=== PATIENT | female | born 1980 | race Hispanic/Latino ===

== ENCOUNTER 2016-11-04 09:02 | Emergency (ER) | payer MEDICAID ==
[2016-11-04 09:11] VITALS: BP 130/78; PULSE 71; RESP 20; TEMP 97.9; O2SAT 99
--- NOTE | 2016-11-04 09:40 | C.PDOC ---
History Of Present Illness 36 yo female w/PMHx of chronic neck and lower back pain, come in for evaluation of Right sided neck pain exacerbation for past few days. Pain is localized over Right side over neck, " tightness" extend down to Right upper back, worse with movement. Pt admits, similar sx in past and c/w chronic neck pain. Pt sts, takes currently Naproxen, Flexeril without improvement. Otherwise, pt denies known direct trauma or injury, fever, chills, headache, dizziness, CP, SOB, dyspnea, palpitation, denies weakness, sensory or vascular deficits to B/L Es. Ambulate to ED for evaluation, not in any apparent distress. Time Seen by Provider: 11/04/16 09:21 Chief Complaint (Nursing): Back Pain History Per: Patient History/Exam Limitations: no limitations Onset/Duration Of Symptoms: Days Current Symptoms Are (Timing): Still Present Quality Of Discomfort: "Pain" Severity: Moderate Previous Symptoms: None Associated Symptoms: None Recent travel outside of the [place]: No Past Medical History Reviewed: Historical Data, Nursing Documentation, Vital Signs Vital Signs: Last Vital Signs Temp 97.9 F 11/04/16 09:07 Pulse 71 11/04/16 09:07 Resp 20 11/04/16 09:07 BP 130/78 11/04/16 09:07 Pulse Ox 99 11/04/16 10:13 - Medical History PMH: Migraine - [facility] Procedures MONITORING NOS (02/06/14) INJECT/INFUSE NEC (01/11/14) MANUAL ASSIST DELIV NEC (03/12/14) Family History: States: Diabetes, Hypertension - Social History Hx Tobacco Use: No Hx Alcohol Use: No (occasional EtOH) Hx Substance Use: No - Immunization History Hx Tetanus Toxoid Vaccination: No Hx Influenza Vaccination: No Hx Pneumococcal Vaccination: No Review Of Systems Except As Marked, All Systems Reviewed And Found Negative. Constitutional: Negative for: Fever, Chills Cardiovascular: Negative for: Chest Pain, Palpitations Respiratory: Negative for: Shortness of Breath Musculoskeletal: Positive for: Neck Pain, Back Pain Neurological: Negative for: Weakness, Numbness, Headache, Dizziness Physical Exam - Physical Exam Appears: Well, Non-toxic, No Acute Distress Skin: Normal Color, Warm, No Rash Head: Atraumatic, Normacephalic Eye(s): bilateral: Normal Inspection Nose: Normal, No Discharge Oral Mucosa: Moist Throat: Normal Neck: Decreased ROM (to ipsilateral side ( Right)), Trachea Midline, No Midline Cervical Tenderness, Paracervical Tenderness (diffuse Right sided paracervical tenderness extend down to Right upper back with moderate muscle spasm. No midine tenderness.), No Step Off Deformity, Supple Chest: Symmetrical Cardiovascular: Rhythm Regular Respiratory: Normal Breath Sounds, No Stridor, No Wheezing Extremity: Normal ROM, No Tenderness, No Pedal Edema, No Deformity, No Swelling Extremity: Bilateral: Atraumatic Neurological/Psych: Oriented x3, Normal Speech, Normal Motor, Normal Sensation, Normal Reflexes ED Course And Treatment O2 Sat by Pulse Oximetry: 99 (on room air) Pulse Ox Interpretation: Normal Progress Note: On re-eavluation, pt is feeling better after the medication. This appears to be a muscle spasm. No neurological findings noted. She is now able to move her head at full range of motion. Pt advised and ref. to F/u with PMD, PM and PT in 2-3 days for re-evaluation and further tx. Pt understand and agrees with discharges. Disposition Counseled Patient/Family Regarding: Diagnosis, Need For Followup, Rx Given - Disposition Referrals: [facility] [Provider Group] Disposition: HOME/ ROUTINE Disposition Time: 09:40 Condition: STABLE Additional Instructions: Light duty to neck area Consider to change pillow Take medication as need for pain Follow up with PMD, Pain Management and PT in 2-3 days for re-evaluation. Return to ED if any worsening or new changes. Prescriptions: Methocarbamol [Robaxin] 500 mg PO TID #14 tab Ketorolac Tromethamine [Toradol] 10 mg PO BID #10 tab diaZEpam [Valium] 5 mg PO HS #5 tab Instructions: Cervical Sprain (ED), Cervical Radiculopathy (ED) - Clinical Impression Clinical Impression: Cervical radiculitis - PA / GEOPHYSICAL LABORATORY CHIEF / Resident Statement MD/DO has reviewed & agrees with the documentation as recorded.
== END 2016-11-04 09:58 | disposition home or self-care (01) ==
LOC: C.ER 09:02
DX: M54.12 Radiculopathy, cervical region (principal)
CPT/HCPCS: 96372; 99283; J1885

== ENCOUNTER 2017-05-23 16:45 | Emergency (ER) | payer MEDICAID ==
[2017-05-23 17:11] VITALS: TEMP 98
[2017-05-23 18:39] LABS: BASO # 0.1 K/uL (0.0-0.2); BASO % 0.6 % (0.0-2.0); EOS # 0.3 K/uL (0.0-0.7); EOS % 2.4 % (0.0-4.0); HEMATOCRIT 38.1 % (34.0-47.0); LYMPH # 3.2 K/uL (1.0-4.3); MEAN CELL VOLUME 82.8 fL (81.0-99.0); MEAN CORPUSCULAR HGB CONC 33.8 g/dL (33.0-37.0); MEAN PLATELET VOLUME 7.2 fL (7.2-11.7); MONO # 0.5 K/uL (0.0-0.8); MONO % 4.3 % (0.0-10.0); RED CELL DISTRIBUTION WIDTH 13.7 % (11.5-14.5); WHITE BLOOD COUNT 10.8 K/uL (4.8-10.8)
[2017-05-23 18:49] LABS: CHLORIDE 99 mmol/L (98-107); POTASSIUM 3.8 mmol/L (3.6-5.2); SODIUM 135 mmol/L (132-148)
[2017-05-23 18:51] LABS: ALB/GLOB RATIO 1.3 (1.0-2.1); ALKALINE PHOSPHATASE 50 U/L (38-126); AST/SGOT 19 U/L (14-36); BILIRUBIN,TOTAL 0.5 mg/dL (0.2-1.3); CARBON DIOXIDE 25 mmol/L (22-30); GFR AFRICAN-AMERICAN > 60; TOTAL PROTEIN 8.3 g/dL (6.3-8.3)
[2017-05-23 18:52] LABS: ALT/SGPT 29 U/L (9-52); BLOOD UREA NITROGEN 14 mg/dL (7-17); GLUCOSE,RANDOM 84 mg/dL (65-105)
--- NOTE | 2017-05-23 18:59 | C.PDOC ---
History Of Present Illness 36 year old female presents tot ED for evaluation of redness to her left forearm after she underwent PPD skin test on 05/17. Patient states she initially noted redness around the area. She then searched for her symptoms yesterday on Google, then developed shortness of breath and chest tightness shortly after. Patient denies taking any prescription medications or past medical history of DVT, PE or heart disease. Time Seen by Provider: 05/23/17 17:56 Chief Complaint (Nursing): Shortness Of Breath History Per: Patient History/Exam Limitations: no limitations Onset/Duration Of Symptoms: Days Current Symptoms Are (Timing): Still Present Quality: denies: "Pain" Current Respiratory Medications: See Home Med List Associated Symptoms: denies: Fever, Chills Additional History Per: Patient Past Medical History Reviewed: Historical Data, Nursing Documentation, Vital Signs Vital Signs: Last Vital Signs Temp 98 F 05/23/17 19:33 Pulse 54 L 05/23/17 19:33 Resp 17 05/23/17 19:33 BP 116/78 05/23/17 19:33 Pulse Ox 100 05/23/17 21:27 - Medical History PMH: Anxiety, Migraine Surgical History: No Surg Hx - [facility] Procedures MONITORING NOS (02/06/14) INJECT/INFUSE NEC (01/11/14) MANUAL ASSIST DELIV NEC (03/12/14) Family History: States: Diabetes, Hypertension - Social History Hx Tobacco Use: No Hx Alcohol Use: Yes Hx Substance Use: No - Immunization History Hx Tetanus Toxoid Vaccination: No Hx Influenza Vaccination: No Hx Pneumococcal Vaccination: No Review Of Systems Respiratory: Positive for: Shortness of Breath Skin: Positive for: Other (redness to left forearm s/p PPD skin test ) Psych: Positive for: Anxiety Physical Exam - Physical Exam Appears: Non-toxic, No Acute Distress Skin: Warm, Dry, Other (slight erythema to left forearm, surrouding PPD skin test site. no palpable nodule ) Head: Atraumatic, Normacephalic Eye(s): bilateral: Normal Inspection Oral Mucosa: Moist Neck: Supple Chest: Symmetrical, No Deformity, No Tenderness Cardiovascular: Rhythm Regular, No Murmur Respiratory: Normal Breath Sounds, No Rales, No Rhonchi, No Wheezing Extremity: Normal ROM, Capillary Refill (less than 2 seconds ) Neurological/Psych: Oriented x3, Normal Speech, Normal Cognition Gait: Steady ED Course And Treatment - Laboratory Results Result Diagrams: 05/23/17 18:34 05/23/17 18:34 ECG: Interpreted By Me, Viewed By Me ECG Rhythm: Sinus Bradycardia Interpretation Of ECG: Sinus bradycardia at rate 56bpm. Nonspecific T wave changes. Rate From EC O2 Sat by Pulse Oximetry: 100 (on RA ) Pulse Ox Interpretation: Normal - Radiology CXR: Interpreted by Me, Viewed By Me CXR Interpretation: Yes: No Acute Disease Medical Decision Making Medical Decision Making: bloodwork, urinalysis, CXR, and EKG ordered and reviewed. On reassessment, patient is resting comfortably, showing no signs of distress and reports her hyperventilation has resolved. Patient is stable for discharge and is advised to follow up with her PMD within 1-2 days for further evaluation and/or return to ED if symptoms worsen or return. Disposition Counseled Patient/Family Regarding: Studies Performed, Diagnosis, Need For Followup - Disposition Disposition: HOME/ ROUTINE Disposition Time: 19:30 Condition: IMPROVED Additional Instructions: follow up with your doctor in 2 days call to make an appointment take medications as prescribed return to hospital if symptoms worsens or progress Instructions: Hyperventilation (ED), Panic Attack (ED) Forms: [facility] (German), General Discharge Instructions - Clinical Impression Clinical Impression: Hyperventilation, Panic attack - PA / MACHINIST CLASS B / Resident Statement MD/DO has reviewed & agrees with the documentation as recorded. - Scribe Statement The provider has reviewed the documentation as recorded by the Scribe (Laisha Quezada) Provider Attestation: All medical record entries made by the Scribe were at my direction and personally dictated by me. I have reviewed the chart and agree that the record accurately reflects my personal performance of the history, physical exam, medical decision making, and the department course for this patient. I have also personally directed, reviewed, and agree with the discharge instructions and disposition.
[2017-05-23 19:54] VITALS: BP 116/78; PULSE 54; RESP 17
[2017-05-23 19:59] VITALS: O2SAT 100
--- NOTE | 2017-05-24 10:10 | RAD ---
HISTORY: chest pain COMPARISON: None available. TECHNIQUE: Chest PA and lateral FINDINGS: LUNGS: No focal consolidation. Please note that chest x-ray has limited sensitivity for the detection of pulmonary masses. PLEURA: No significant pleural effusion identified. No definite pneumothorax . CARDIOVASCULAR: Heart size appears within normal limits. OSSEOUS STRUCTURES: No acute osseous abnormality identified. VISUALIZED UPPER ABDOMEN: Unremarkable. OTHER FINDINGS: None. IMPRESSION: No focal consolidation, significant pleural effusion, or definite pneumothorax identified.
--- NOTE | 2017-05-24 15:28 | CARD ---
APPROVED REPORT EKG Measurement Heart [id number] <Conclusion> Sinus bradycardia Otherwise normal ECG
== END 2017-05-23 19:57 | disposition home or self-care (01) ==
LOC: C.ER 16:45
DX: F41.0 Panic disorder [episodic paroxysmal anxiety] (principal); R06.4 Hyperventilation

== ENCOUNTER 2018-03-26 03:51 | Emergency (ER) | payer MEDICAID ==
[2018-03-26 04:02] VITALS: TEMP 98.6
--- NOTE | 2018-03-26 04:13 | C.PDOC ---
History Of Present Illness 37 year old female presents to the ED c/o left groin area pain. Patient states pain developed while she was walking yesterday, pain worsens with movement of her left thigh. Patient denies injury, fall, trauma, weakness, numbness. Chief Complaint (Nursing): Groin Pain History Per: Patient History/Exam Limitations: no limitations Onset/Duration Of Symptoms: Days Current Symptoms Are (Timing): Still Present Location Of Pain/Discomfort: Other Radiation Of Pain To:: Leg Quality Of Discomfort: "Pain" Associated Symptoms: denies: Nausea, Vomiting, Diarrhea Exacerbating Factors: None Alleviating Factors: None Recent travel outside of the [place]: No Additional History Per: Patient Abnormal Vaginal Bleeding: No Past Medical History Reviewed: Historical Data, Nursing Documentation, Vital Signs Vital Signs: Last Vital Signs Temp 98.6 F 03/26/18 04:00 Pulse 68 03/26/18 04:00 Resp 18 03/26/18 04:00 BP 135/88 03/26/18 04:00 Pulse Ox 100 03/26/18 04:15 - Medical History PMH: Anxiety, Migraine Surgical History: No Surg Hx - [facility] Procedures MONITORING NOS (02/06/14) INJECT/INFUSE NEC (01/11/14) MANUAL ASSIST DELIV NEC (03/12/14) Family History: States: Diabetes, Hypertension - Social History Hx Tobacco Use: No Hx Alcohol Use: Yes Hx Substance Use: No - Immunization History Hx Tetanus Toxoid Vaccination: No Hx Influenza Vaccination: No Hx Pneumococcal Vaccination: No Review Of Systems Constitutional: Negative for: Fever, Chills Cardiovascular: Negative for: Chest Pain, Palpitations Respiratory: Negative for: Cough, Shortness of Breath Gastrointestinal: Negative for: Nausea, Vomiting, Abdominal Pain Genitourinary: Positive for: Pelvic Pain Skin: Negative for: Rash Neurological: Negative for: Weakness, Numbness Physical Exam - Physical Exam Appears: Non-toxic, No Acute Distress Skin: Normal Color, Warm, Dry Head: Atraumatic, Normacephalic Eye(s): bilateral: Normal Inspection Neck: Normal ROM, Supple Chest: Symmetrical Cardiovascular: Rhythm Regular Respiratory: Normal Breath Sounds, No Rales, No Rhonchi, No Wheezing Gastrointestinal/Abdominal: Soft, No Tenderness, No Guarding, No Rebound Extremity: Normal ROM, Tenderness (medial aspect of left thigh. Pain worsens on left thigh movement ), No Swelling, Other (iguinal area no swelling, no hernia noted) Pulses: Left Dorsalis Pedis: Normal, Right Dorsalis Pedis: Normal Neurological/Psych: Oriented x3, Normal Speech, Normal Cognition Gait: Steady ED Course And Treatment O2 Sat by Pulse Oximetry: 100 (ON RA) Pulse Ox Interpretation: Normal Medical Decision Making Medical Decision Making: Plan: * Flexeril 10 mg PO * Toradol 60 mg IM * UA Disposition - Disposition Referrals: Indio Courtney DO [Primary Care Provider] - Disposition: HOME/ ROUTINE Disposition Time: 05:45 Condition: STABLE Prescriptions: Ciprofloxacin [Cipro] 1 tab PO BID #14 tab Naproxen 375 mg PO Q6 #20 tablet Instructions: Tendonitis (DC), Urinary Tract Infections in Adults Forms: [facility] ([place]) - POA Present On Arrival: None - Clinical Impression Clinical Impression: Tendinitis, UTI (urinary tract infection) - Scribe Statement The provider has reviewed the documentation as recorded by the Scribe Billy Sanchez All medical record entries made by the Scribe were at my direction and personally dictated by me. I have reviewed the chart and agree that the record accurately reflects my personal performance of the history, physical exam, medical decision making, and the department course for this patient. I have also personally directed, reviewed, and agree with the discharge instructions and disposition.
[2018-03-26 04:36] LABS: SQUAMOUS EPITHIAL 5 /hpf (0-5); URINE BILIRUBIN NEGATIVE (NEGATIVE); URINE BLOOD 1+ (NEGATIVE); URINE CLARITY Hazy (Clear); URINE COLOR Yellow (YELLOW); URINE GLUCOSE (UA) NORMAL (Normal); URINE LEUKOCYTE ESTERASE 1+ Leu/uL (Negative); URINE PROTEIN NEGATIVE (NEGATIVE); URINE UROBILINOGEN NORMAL mg/dL (0.2-1.0)
[2018-03-26 04:37] LABS: HCG,QUALITATIVE URINE NEGATIVE (NEGATIVE)
[2018-03-26 06:07] VITALS: BP 132/67; PULSE 67; RESP 16; O2SAT 99
== END 2018-03-26 06:05 | disposition home or self-care (01) ==
LOC: SUPCPDRO 03:51 → C.ER 03:51
DX: N39.0 Urinary tract infection, site not specified (principal); M77.9 Enthesopathy, unspecified
CPT/HCPCS: 81001; 84703; 87086; 96372; 99283; J1885

== ENCOUNTER 2018-11-16 11:43 | Emergency (ER) | payer MEDICAID ==
[2018-11-16 11:50] VITALS: RESP 18
--- NOTE | 2018-11-16 12:40 | C.PDOC ---
History Of Present Illness 38 year old female presents to ED with complaint of new onset upper abdominal pain since last night. Patient describes the pain as dull and constant. Patient also complaint of nausea and vomiting. Patient denies history of PUD. PSHx negative abdomen. Patient's last menstrual period was 1 month ago. Patient denies fever, chills, and diarrhea. NEW ONSET UPPER ABD PAIN SINCE LAST NIGHT. DULL CONSTANT. PAIN PERIUMB W PALPATION. +NV. DENIES HO PUD. PSH NEG ABD. LMP 1 MO. 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 denies: Fever, Chills, Diarrhea Exacerbating Factors: None Alleviating Factors: None Past Medical History Reviewed: Historical Data, Nursing Documentation, Vital Signs Vital Signs: Last Vital Signs Temp 97.6 F 11/16/18 11:46 Pulse 66 11/16/18 11:46 Resp 18 11/16/18 11:46 BP 125/78 11/16/18 11:46 Pulse Ox 99 11/16/18 11:46 - Medical History PMH: Anxiety, Migraine Surgical History: No Surg Hx - [facility] Procedures MONITORING NOS (02/06/14) INJECT/INFUSE NEC (01/11/14) MANUAL ASSIST DELIV NEC (03/12/14) Family History: States: Diabetes, Hypertension - Social History Hx Tobacco Use: No Hx Alcohol Use: Yes Hx Substance Use: No - Immunization History Hx Tetanus Toxoid Vaccination: Yes Hx Influenza Vaccination: No Hx Pneumococcal Vaccination: No Review Of Systems Constitutional: Negative for: Fever, Chills, Weakness Gastrointestinal: Positive for: Nausea, Vomiting, Abdominal Pain (upper abdomen). Negative for: Diarrhea Neurological: Negative for: Weakness, Numbness, Dizziness Physical Exam - Physical Exam Appears: Non-toxic, Other (mild distress) Skin: Normal Color, Warm, Dry, Other (good turgor) Head: Atraumatic, Normacephalic Eye(s): bilateral: Other (anicteric) Oral Mucosa: Moist Neck: Normal ROM, Supple Chest: Symmetrical, No Deformity Cardiovascular: Rhythm Regular, No Murmur Respiratory: No Accessory Muscle Use, No Rales, No Rhonchi, No Wheezing Gastrointestinal/Abdominal: Soft, Tenderness (epigastric and bilateral upper quadrant tenderness), No Guarding, No Rebound, Other (periumbilical and right lower quadrant areas within normal limits) Extremity: Capillary Refill (<2 seconds) Pulses: Left Radial: Normal, Right Radial: Normal, Left Dorsalis Pedis: Normal, Right Dorsalis Pedis: Normal Neurological/Psych: Oriented x3, Normal Speech, Normal Cognition ED Course And Treatment - Laboratory Results Result Diagrams: 11/16/18 12:38 11/16/18 12:38 Urine POC: Negative ECG: Interpreted By Me ECG Rhythm: Sinus Bradycardia ECG Interpretation: Normal Rate From EC O2 Sat by Pulse Oximetry: 99 (in RA) Pulse Ox Interpretation: Normal - CT Scan/US Abdomen/Pelvis CT Other Rad Studies (CT/US): Interpreted By Me, Read By Radiologist CT/US Interpretation: IMPRESSION: No evidence of acute appendicitis. Trace fluid in cul-de-sac common nonspecific. Otherwise unremarkable examination. Progress Note: Abdomen/Pelvis CT ordered for patient. Labs ordered with lipase, CBC, and UA. Patient given Morphine IVP, Pepcid IVP, IV fluids, and Zofran IVP Progress - Re-Evaluation Re-evaluation Note: 11/16/18 15:15 FEELS BETTER COMPARED TO INITIAL. DOES NOT WANT ADDL PAIN RX @ THIS TIME. PENDING CT - Data Reviewed Data Reviewed: Lab, Diagnostic imaging Disposition Counseled Patient/Family Regarding: Studies Performed, Diagnosis, Need For Fol lowup, Rx Given - Disposition Referrals: YOUR,PMD [Other] Disposition: HOME/ ROUTINE Disposition Time: 16:51 Condition: IMPROVED Prescriptions: Atropine/Hyoscyamine [] 1 tab PO TID PRN #15 tab PRN Reason: Gi Distress Famotidine [Pepcid AC] 10 mg PO QN #30 tablet Ondansetron ODT [Zofran ODT] 4 mg PO TID PRN #12 odt PRN Reason: Nausea/Vomiting Instructions: Acute Abdomen (Belly Pain), Adult (DC) Forms: [facility] (Sami), Work Excuse - Clinical Impression Clinical Impression: Abdominal pain, Nausea - Scribe Statement The provider has reviewed the documentation as recorded by the Scribe (Lauren Marshall) All medical record entries made by the Scribe were at my direction and personally dictated by me. I have reviewed the chart and agree that the record accurately reflects my personal performance of the history, physical exam, medical decision making, and the department course for this patient. I have also personally directed, reviewed, and agree with the discharge instructions and disposition.
[2018-11-16 12:45] LABS: BASO % 0.4 % (0.0-2.0); EOS # 0.1 K/uL (0.0-0.7); EOS % 1.3 % (0.0-4.0); HEMOGLOBIN 13.7 g/dL (11.0-16.0); LYMPH # 1.1 K/uL (1.0-4.3); LYMPH % 16.3 % (20.0-40.0); MEAN PLATELET VOLUME 7.4 fL (7.2-11.7); MONO # 0.2 K/uL (0.0-0.8); MONO % 3.3 % (0.0-10.0); NEUT # 5.5 K/uL (1.8-7.0); NEUT % 78.7 % (50.0-75.0); RBC 4.71 Mil/uL (3.80-5.20); RED CELL DISTRIBUTION WIDTH 13.5 % (11.5-14.5)
[2018-11-16] MEDS ORDERED: Sodium Chloride 0.9% 1,000 ML IV SCH (12:45)
[2018-11-16 12:48] LABS: MEAN CELL VOLUME 85.2 fL (81.0-99.0)
[2018-11-16] MEDS ORDERED: Sodium Chloride 0.9% 1,000 ML ONE (12:53)
[2018-11-16 13:02] LABS: SQUAMOUS EPITHIAL 20 /hpf (0-5); URINE BACTERIA RARE (<OCC); URINE BILIRUBIN NEGATIVE (NEGATIVE); URINE BLOOD 1+ (NEGATIVE); URINE CLARITY Hazy (Clear); URINE COLOR Yellow (YELLOW); URINE GLUCOSE (UA) NORMAL (Normal); URINE LEUKOCYTE ESTERASE NEG Leu/uL (Negative); URINE PROTEIN NEGATIVE (NEGATIVE); URINE UROBILINOGEN NORMAL mg/dL (0.2-1.0)
[2018-11-16 13:09] LABS: AMYLASE 52 U/L (30-110); BLOOD UREA NITROGEN 16 mg/dL (7-17); CALCIUM 8.7 mg/dl (8.6-10.4); GFR NON-AFRICAN AMERICAN > 60; LIPASE 53 U/L (23-300)
[2018-11-16 13:11] LABS: ALBUMIN 4.2 g/dL (3.5-5.0)
[2018-11-16 13:12] LABS: ALB/GLOB RATIO 1.4 (1.0-2.1); ALT/SGPT < 6 U/L (9-52); AST/SGOT 32 U/L (14-36)
[2018-11-16] MEDS ORDERED: Iodixanol 320 MG/ML 100 ML BOTTLE IV ONE (14:47)
--- NOTE | 2018-11-16 16:00 | CT ---
Date of service: 11/16/2018 PROCEDURE: CT Abdomen and Pelvis with contrast HISTORY: ABD PAIN RO APPY COMPARISON: None. TECHNIQUE: Contrast dose: 100 mL Visipaque 320 Radiation dose: Total exam DLP = 918.43 mGy-cm. This CT exam was performed using one or more of the following dose reduction techniques: Automated exposure control, adjustment of the mA and/or kV according to patient size, and/or use of iterative reconstruction technique. FINDINGS: LOWER THORAX: Unremarkable. LIVER: Unremarkable. No gross lesion or ductal dilatation. GALLBLADDER AND BILE DUCTS: Unremarkable. PANCREAS: Unremarkable. No gross lesion or ductal dilatation. SPLEEN: Unremarkable. ADRENALS: Unremarkable. No mass. KIDNEYS AND URETERS: Unremarkable. No hydronephrosis. No solid mass. VASCULATURE: Unremarkable. No aortic aneurysm. No aortic atherosclerotic calcification or mural plaque present. BOWEL: Unremarkable. No obstruction. No gross mural thickening. APPENDIX: Normal appendix. PERITONEUM: Trace fluid in cul-de-sac LYMPH NODES: Unremarkable. No enlarged lymph nodes. BLADDER: Unremarkable. REPRODUCTIVE: Unremarkable uterus BONES: No acute fracture. OTHER FINDINGS: None. IMPRESSION: No evidence of acute appendicitis. Trace fluid in cul-de-sac common nonspecific. Otherwise unremarkable examination.
[2018-11-16] MEDS ORDERED: Belladonna-Phenobarbital PO STA (16:52)
[2018-11-16] MEDS ORDERED: Belladonna-Phenobarbital ONE (17:03)
[2018-11-16] MEDS ORDERED: Aluminum Hydroxide/Magnesium Hydroxide Susp (30 mL) ONE (17:06)
[2018-11-16] MEDS ORDERED: Aluminum Hydroxide/Magnesium Hydroxide Susp (30 mL) PO STA (17:12)
[2018-11-16 17:13] VITALS: BP 108/64; PULSE 82; TEMP 98.1; O2SAT 100
--- NOTE | 2018-11-19 14:52 | CARD ---
APPROVED REPORT Date of service: 11/16/2018 EKG Measurement Heart [id number] VT [id number] <Conclusion> Sinus bradycardia Cannot rule out Anterior infarct, age undetermined Abnormal ECG
== END 2018-11-16 17:13 | disposition home or self-care (01) ==
LOC: C.ER 11:43
DX: R10.9 Unspecified abdominal pain (principal); R11.0 Nausea; F41.9 Anxiety disorder, unspecified
CPT/HCPCS: 74177; 80053; 81001; 81025; 82150; 83690; 85025; 93005; 96361; 96374; 96375; 99284; J2270; J2405; J7030; Q9967